=== PATIENT | male | born 1995 | race Caucasian/White ===

== ENCOUNTER 2018-01-30 18:48 | Emergency (ER) | payer OTHER ==
[~2018-01-30] VITALS: Ht 175.3 cm; Wt 83.1 kg
[2018-01-30 19:01] VITALS: TEMP 37.5; Ht 175.3 cm; Wt 83.1 kg
[2018-01-30] MEDS ORDERED: VNTHFA/IN INH (19:45)
[2018-01-30] MEDS ORDERED: CLR10 PO (19:45)
[2018-01-30] MEDS ORDERED: ONDANSETRON INJ 2 MG/ML 2 ML VIAL IV STA (19:56)
[2018-01-30] MEDS ORDERED: SODIUM CHLORIDE 0.9% 1000ML 1,000 ML IV STA (19:56)
[2018-01-30] MEDS ORDERED: IBUPROFEN 800 MG TAB PO STA (19:56)
[2018-01-30 20:24] LABS: BASO % 0.1 %; BASO ABS # 0.02 K/uL (0-0.2); EOS % 0.1 %; EOS ABS # 0.01 K/uL (0-0.5); HEMATOCRIT 41.4 % (42-52); HEMOGLOBIN 15.1 g/dL (14.0-18.0); IG# 0.05 K/uL (0.00-0.02); LYMPH % 6.6 %; LYMPH ABS # 1.06 K/uL (1.2-3.4); MEAN CELL VOLUME 83.6 fL (80-100); MEAN CORPUSCULAR HEMOGLOBIN 30.5 pg (25-34); MEAN CORPUSCULAR HGB CONC 36.5 g/dl (32-36); MEAN PLATELET VOLUME 8.9 fL (7.4-10.4); MONO % 4.4 %; NEUT % 88.5 %; NEUT ABS # 14.24 K/uL (1.4-6.5); PLATELET COUNT 201 K/uL (130-400); RED CELL DISTRIBUTION WIDTH CV 12.2 % (11.5-14.5); WHITE BLOOD COUNT 16.08 K/uL (4.8-10.8)
[2018-01-30 20:44] LABS: CALCIUM 8.7 mg/dl (8.5-10.1); CREATININE 1.15 mg/dl (0.60-1.40); POTASSIUM 3.8 mmol/L (3.5-5.1)
[2018-01-30] MEDS ORDERED: ONDA4TAB10 SL (21:24)
--- NOTE | 2018-01-30 21:26 | EMERGENCY ROOM VISIT NOTE ---
History First contact with patient: 19:06 Chief Complaint: FLU LIKE SX Stated Complaint: HEADACHE, SORE JOINTS, NAUSEA, FEVER History of Present Illness The patient is a 22 year old male who presents to the Emergency Room with complaints of flulike symptoms which started 6 hours ago. The patient states that he did have a slight sore throat for 2 days, which resolved and returned today. He reports he has a mild sore throat, nausea, body aches and frontal headache. His symptoms came on fairly suddenly 6 hours ago. He feels feverish but did not measure his temperature. He has had some slight nasal congestion. He has some abdominal discomfort which comes and goes but reports this discomfort is associated with nausea primarily. He denies vomiting, diarrhea, cough, shortness of breath or chest pain. He denies neck pain/stiffness. He denies recent travel or recent sick contacts. He did not take any medications for his symptoms prior to coming here. He reports a history of asthma but is otherwise healthy. Review of Systems A complete 10 point review of systems was reviewed with the patient with pertinent positives and negatives as per history of present illness. All else were negative. Past Medical/Surgical History Medical Problems: (1) No significant active problems Social History Smoking Status: Never Smoker Alcohol Use: occasionally Occupation Status: [employer] student Current/Historical Medications Scheduled Ondasetron Odt (Zofran Odt), 4 MG SL Q6H Scheduled PRN Albuterol Hfa (Ventolin Hfa), 2 PUFFS INH Q6H PRN for SOB/Wheezing Loratadine (Claritin), 10 MG PO DAILY PRN for Seasonal Allergies Physical Exam Vital Signs Date Time Temp Pulse Resp B/P (MAP) Pulse Ox O2 Delivery O2 Flow Rate FiO2 01/30/18 21:58 101 18 134/73 98 01/30/18 20:11 101 18 134/73 98 Room Air 01/30/18 19:01 37.5 110 18 138/70 98 Room Air Physical Exam VITALS: Vitals are noted on the nurse's note and reviewed by myself. Vital signs stable. GENERAL: This is a 22-year-old male, in no acute distress, nondiaphoretic, well- developed well-nourished. SKIN: The skin was without rashes. EARS: External auditory canals clear. The left tympanic membrane is mildly erythematous, but no effusion or bulging. Right tympanic membrane is pearly loza. EYES: Pupils equal round and reactive to light and accommodation. Conjunctivae without injection, sclerae without icterus. NOSE: Patent, turbinates without inflammation or discharge. MOUTH: Mucous membranes moist. Tonsils are not enlarged. Pharynx mildly erythematous, no exudate. NECK: Supple without nuchal rigidity. There is a slightly enlarged left posterior cervical node. No meningismus. HEART: Regular rate and rhythm without murmurs gallops or rubs. LUNGS: Clear to auscultation bilaterally without wheezes, rales or rhonchi. ABDOMEN: Positive bowel sounds x 4. Soft, minimal suprapubic discomfort to palpation. NEURO: Patient was alert and oriented to person place and time. Medical Decision & Procedures Laboratory Results 01/30/18 20:12 Red Blood Count 4.95, Mean Corpuscular Volume 83.6, Mean Corpuscular Hemoglobin 30.5, Mean Corpuscular Hemoglobin Concent 36.5, Mean Platelet Volume 8.9, Neutrophils (%) (Auto) 88.5, Lymphocytes (%) (Auto) 6.6, Monocytes (%) (Auto) 4.4, Eosinophils (%) (Auto) 0.1, Basophils (%) (Auto) 0.1, Neutrophils # (Auto) 14.24, Lymphocytes # (Auto) 1.06, Monocytes # (Auto) 0.70, Eosinophils # (Auto) 0.01, Basophils # (Auto) 0.02 01/30/18 20:12 Test 01/30/18 20:12 White Blood Count 16.08 K/uL (4.8-10.8) Red Blood Count 4.95 M/uL (4.7-6.1) Hemoglobin 15.1 g/dL (14.0-18.0) Hematocrit 41.4 % (42-52) Mean Corpuscular Volume 83.6 fL (80-100) Mean Corpuscular Hemoglobin 30.5 pg (25-34) Mean Corpuscular Hemoglobin Concent 36.5 g/dl (32-36) Platelet Count 201 K/uL (130-400) Mean Platelet Volume 8.9 fL (7.4-10.4) Neutrophils (%) (Auto) 88.5 % Lymphocytes (%) (Auto) 6.6 % Monocytes (%) (Auto) 4.4 % Eosinophils (%) (Auto) 0.1 % Basophils (%) (Auto) 0.1 % Neutrophils # (Auto) 14.24 K/uL (1.4-6.5) Lymphocytes # (Auto) 1.06 K/uL (1.2-3.4) Monocytes # (Auto) 0.70 K/uL (0.11-0.59) Eosinophils # (Auto) 0.01 K/uL (0-0.5) Basophils # (Auto) 0.02 K/uL (0-0.2) RDW Standard Deviation 37.0 fL (36.4-46.3) RDW Coefficient of Variation 12.2 % (11.5-14.5) Immature Granulocyte % (Auto) 0.3 % Immature Granulocyte # (Auto) 0.05 K/uL (0.00-0.02) Anion Gap 6.0 mmol/L (3-11) Est Creatinine Clear Calc Drug Dose 101.7 ml/min Estimated GFR () 104.8 Estimated GFR (Non- 90.5 BUN/Creatinine Ratio 15.0 (10-20) Calcium Level 8.7 mg/dl (8.5-10.1) Monoscreen NEG (NEG) Medications Administered Medications (Trade) Dose Ordered Sig/Kelvin Route Start Time Stop Time Status Last Admin Dose Admin Sodium Chloride 1,000 ml @ 999 mls/hr Q1H1M STAT IV 01/30/18 19:56 01/30/18 20:56 DC 01/30/18 20:09 999 MLS/HR Ondansetron HCl (Zofran Inj) 4 mg NOW STAT IV 01/30/18 19:56 01/30/18 19:57 DC 01/30/18 20:08 4 MG Ibuprofen (Motrin Tab) 800 mg NOW STAT PO 01/30/18 19:56 01/30/18 19:57 DC 01/30/18 20:10 800 MG Ondansetron HCl (ZOFRAN ODT 4MG Home Pack) 1 homepack UD ONCE PO 01/30/18 21:30 01/30/18 21:31 DC 01/30/18 21:53 1 HOMEPACK Medical Decision Differential diagnosis includes strep pharyngitis, mononucleosis, influenza, viral illness, otitis media, pneumonia, appendicitis, gastroenteritis, sinusitis , meningitis, among others. The patient is a 22-year-old male who presents today complaining of flulike symptoms which have been present for 6 hours. A leukocytosis of 16,000, which is nonspecific. Labs were otherwise unremarkable. No concerning electrolyte abnormalities. Kidney functions within normal limits. Monospot was negative. Rapid strep was performed and was negative. Culture is pending. Influenza has not been prevalent in the area for several weeks and do not feel that testing for this is necessary given low clinical suspicion. Patient does have some slight erythema of the left tympanic membrane, however this does not appear to represent infection at this time and is more likely due to viral illness. There is no evidence of meningitis/encephalitis on exam. I explained to the patient that given his short duration of symptoms, it is difficult to know exactly what is causing his symptoms. He is afebrile here and felt significantly better after receiving IV fluids, ibuprofen and Zofran. I think his symptoms are most likely secondary to viral illness but I discussed limitations of testing at this time and recommended follow-up with [facility] tomorrow for a recheck and further testing if necessary. He was advised to stay well-hydrated, take Tylenol and ibuprofen for symptoms, and was given a prescription for Zofran for nausea. Based on the patient's presentation and work up, I feel the patient is stable for outpatient treatment. The patient was educated to return to the emergency department for any worsening of their current condition or new/concerning symptoms. He will follow up with [facility]. Medication Reconcilliation Current Medication List: was personally reviewed by me Blood Pressure Screening Patient's blood pressure: Normal blood pressure Impression Primary Impression: Influenza-like symptoms Departure Information Dispostion Home / Self-Care Condition GOOD Prescriptions Ondasetron Odt (ZOFRAN ODT) 4 Mg Tab 4 MG SL Q6H for Nausea, #10 TAB Prov: Sylvia Reid .GIORGI 01/30/18 Referrals No Doctor, Assigned (PCP) [facility] [address] Patient Instructions My [facility] Additional Instructions For pain/fever control, you can use the following [id number] medicines ( if >12 yo): - Regular strength (325mg/tab) Tylenol (acetaminophen) 2 tabs every 4-6 hours as needed. Do not exceed 12 tablets in a 24 hour period. Avoid taking more than 4 grams (4000 mg) of Tylenol per day. This includes any other sources of acetaminophen you may take on a regular basis. - Regular strength (200 mg/tab) Advil (ibuprofen) 1-2 tabs every 4-6 hours as needed. Do not exceed a dose of 3200 mg per day. You have been prescribed Zofran to be used for any nausea or vomiting. Take as prescribed. Rest and make sure to stay well-hydrated by drinking plenty of fluids. Follow-up with [facility] tomorrow for a recheck. Return here for any abdominal pain, persistent vomiting, neck pain/stiffness, severe headache, or any other worsening or new/concerning symptoms.
[2018-01-30] MEDS ORDERED: ONDANSETRON HOME PACK 4MG OD TAB PO ONE (21:30)
[2018-01-30 21:58] VITALS: BP 134/73; PULSE 101; O2SAT 98
== END 2018-01-30 21:54 | disposition home or self-care (01) ==
LOC: C.EDB 18:50
DX: R68.89 Other general symptoms and signs (principal)